=== PATIENT | female | born 1995 | race Caucasian/White ===

== ENCOUNTER 2018-12-16 21:25 | Emergency (ER) | payer OTHER ==
[~2018-12-16] VITALS: Ht 170.2 cm; Wt 72.6 kg
[2018-12-16] MEDS ORDERED: MEDROLDOSEPACK PO (21:50)
[2018-12-16] MEDS ORDERED: TRIAMCINOLONE A80 G2 TOP (21:50)
[2018-12-16 22:15] VITALS: BP 124/92
== END 2018-12-16 22:15 | disposition home or self-care (01) ==
LOC: M.ERS 21:25
DX: L50.9 Urticaria, unspecified (principal); T78.49XA Other allergy, initial encounter; X58.XXXA Exposure to other specified factors, initial encounter